=== PATIENT | female | born 1990 | race Caucasian/White ===

== ENCOUNTER 2016-03-15 22:22 | Emergency (ER) | payer OTHER ==
--- NOTE | 2016-03-15 23:14 | ED GI/GU/ABDOMINAL COMPLAINT ---
History of Present Illness General Chief Complaint: General Adult Stated Complaint: RIGHT SIDED BACK PAIN "KIDNEY" PER PT Source: patient Exam Limitations: no limitations Vital Signs & Intake/Output Vital Signs & Intake/Output Vital Signs Date Time Temp Pulse Resp B/P Pulse O2 O2 Flow FiO2 Ox Delivery Rate 03/16 0032 97.2 60 18 104/60 100 Room Air 03/15 2352 Room Air 03/15 2228 97.7 80 20 110/76 99 ED Intake and Output 03/16 0000 03/15 1200 Intake Total 1000 Output Total Balance 1000 Intake, IV 1000 Patient 107 lb Weight Allergies Coded Allergies: No Known Allergies (03/15/16) Triage Note: PER PT BEGAN PEEING BLOOD ON TUESDAY, WENT TO WALK IN NO INFECTION SEEN BUT GIVEN ANTIBIOTICS ANYWAYS {BACTRIM} LMP 2 WEEKS AGO NORMAL. TODAY BEGAN WITH PAIN TO RT FLANK WAS RADIATING BUT NOT NOW. Triage Nurses Notes Reviewed? yes ? N Is pt currently ? No HPI: This patient is a 25-year-old female who presented to the emergency department today for evaluation of right flank pain and hematuria. The patient reported that her symptoms began on Tuesday and she was urinating blood clots. The patient denied any burning with urination, but did report that she was feeling urgency and frequency. She reported that she went to an urgent care center and they told her that she had no infection in her urine, but started her prophylactically on Bactrim. The patient reported that she vomited approximately 3 times on Tuesday after beginning the Bactrim. She reported associated nausea. She reported that on Tuesday she was feeling better, but today she has vomited approximately 4 or 5 times. She is feeling nauseous again and started to experience 7 out of 10 right flank pain which has been constant since this evening when it started and is nonradiating. She reported that it is worse when she takes a deep breath. No other exacerbating factors. No alleviating factors. The patient denied any fevers, but did report chills. She denied any headaches, chest pain, shortness of breath, abdominal pain, constipation, or diarrhea. (SANTINO ROSAS,KURT) Reconcile Medications Ondansetron (Zofran Odt) 4 MG TAB.RAPDIS 1 TAB SL TID PRN NAUSEA AND VOMITING (ANNIA CHARLES,ROGE You) Past History Travel History Traveled to [place] past 21 day No Medical History Any Pertinent Medical History? see below for history Neurological: NONE EENT: NONE Cardiovascular: NONE Respiratory: NONE Gastrointestinal: NONE Hepatic: NONE Renal: NONE Musculoskeletal: NONE Psychiatric: NONE Endocrine: NONE Surgical History Surgical History: non-contributory Psychosocial History What is your primary language Citizen Of [place] Tobacco Use: Never used Family History Hx Contributory? No (KURT DE PA-C) Review of Systems Review of Systems Constitutional: Reports: see HPI. EENTM: Reports: no symptoms. Respiratory: Reports: no symptoms. Cardiovascular: Reports: no symptoms. GI: Reports: see HPI. Genitourinary: Reports: see HPI. Musculoskeletal: Reports: see HPI. Skin: Reports: no symptoms. Neurological/Psychological: Reports: no symptoms. All Other Systems: Reviewed and Negative (KURT DE PA-C) Physical Exam Physical Exam Gastrointestinal: normal bowel sounds, soft, no organomegaly, tenderness to palpation in the RUQ, LUQ, AND LLQ. NEGATIVE TAYLOR'S SIGN. NO MCBURNY'S POINT TENDERNESS. NEGATIVE ROVSING SIGN. NONDISTENDED. NO MASSES APPREACIATED Comments: Well-developed well-nourished person in no acute distress HEENT: Normal EENT exam, moist mucous membranes Neck: Supple, no lymphadenopathy Back: Normal inspection. Normal gait. No midline tenderness. Positive right- sided CVA tenderness Cardiovascular: Regular rate and rhythm with no murmurs Respiratory: No respiratory distress. Breath sounds clear to auscultation bilaterally with no wheezes, rales, rhonchi Extremity: Normal and equal pulses Neuro: Alert oriented x3, cranial nerves II through XII grossly intact. Skin: No appreciable rash on exposed skin, skin is warm and dry. Psych: Mood and affect is normal Core Measures ACS in differential dx? No Severe Sepsis Present: No Septic Shock Present: No (KURT DE PA-C) Progress Differential Diagnosis: AMI, appendicitis, biliary colic, bowel obstruction, colon cancer, cholecystitis, diverticulitis, ectopic , endometritis, gastritis, hepatitis, ischemic bowel, inflamm bowel dis, intrauterine , kidney stone, ovarian cyst, ovarian torsion, pancreatitis, PID/cervicitis, PUD/ GERD, perforated viscous, threatened AB, UTI/pyelo Plan of Care: Orders Procedure Date/time Status CULTURE,URINE 03/15 2250 Active URINE 03/15 2250 Complete URINALYSIS 03/15 2250 Complete LIPASE 03/15 2250 Complete DIRECT BILIRUBIN 03/15 2250 Complete COMPREHENSIVE METABOLIC PANEL 03/15 2250 Complete CBC WITHOUT DIFFERENTIAL 03/15 2250 Complete AMYLASE 03/15 2250 Complete Laboratory Tests 03/15/162315: Anion Gap 15, Estimated GFR > 60, BUN/Creatinine Ratio 12.2, Glucose 84, Calcium 9.7, Total Bilirubin 0.9, Direct Bilirubin 0.4, AST 25, ALT 23, Alkaline Phosphatase 39, Total Protein 7.9, Albumin 4.8, Globulin 3.1, Albumin/Globulin Ratio 1.5, Amylase 58, Lipase 41, CBC w Diff NO MAN DIFF REQ, RBC 4.57, MCV 92.9 , MCH 31.5 H, RDW 12.4, MPV 10.1, Gran % 67.9, Lymphocytes % 23.2, Monocytes % 6.6, Eosinophils % 2.0, Basophils % 0.3, Absolute Granulocytes 6.2, Absolute Lymphocytes 2.1, Absolute Monocytes 0.6, Absolute Eosinophils 0.2, Absolute Basophils 0, PUBS MCHC 33.9, Urine Color YEL, Urine Clarity CLEAR, Urine pH 6.0, Ur Specific [place] >= 1.030, Urine Protein TRACE H, Urine Ketones >=80, Urine Nitrite NEG, Urine Bilirubin NEG, Urine Urobilinogen 0.2, Ur Leukocyte Esterase NEG, Ur Microscopic SEDIMENT EXAMINED, Urine RBC 5-10 H, Urine WBC 1-3 H, Ur Epithelial Cells MANY H, Urine Mucus MOD H, Urine Hemoglobin SMALL H, Urine Glucose NEG, Urine Test NEGATIVE 03/15/162312: Direct Bilirubin Cancelled, Amylase Cancelled, Lipase Cancelled Microbiology 03/15 2315 URINE ROUT: Urine Culture - RECD Diagnostic Imaging: Viewed by Me: CT Scan. Discussed w/RAD: CT Scan. Radiology Impression: PATIENT: STORMY WELLER PRESENT AGE: 25 PATIENT ACCOUNT NO: [id number] : 89 LOCATION: [facility] ORDERING PHYSICIAN: KURT DE PA-C SERVICE DATE: 03/15/16 EXAM TYPE: CAT - CT ABD & PELVIS W/O IV CONTRAS EXAMINATION: CT ABDOMEN AND PELVIS WITHOUT CONTRAST CLINICAL INFORMATION: Hematuria with right flank pain. Rule out ureterolithiasis. COMPARISON: None. TECHNIQUE: Multidetector volumetric imaging was performed from the superior aspect of the liver through the pubic symphysis. Sagittal and coronal reformatted images were obtained on the technologist's workstation. DLP: 258 mGy-cm. FINDINGS: LUNG BASES: The visualized lung bases are unremarkable. LIVER, GALLBLADDER, AND BILIARY TREE: The liver is normal in size, shape, and attenuation. No focal hepatic lesion or biliary ductal dilatation is present. The gallbladder is unremarkable with no evidence of radiopaque gallstones, gallbladder wall thickening, or obvious pericholecystic inflammatory changes. PANCREAS: Unremarkable. SPLEEN: Unremarkable. ADRENAL GLANDS: Unremarkable. KIDNEYS AND URETERS: The kidneys are normal in size, shape , and attenuation. No hydronephrosis, hydroureter, or calculi seen. No perinephric stranding. BLADDER: Unremarkable. GASTROINTESTINAL TRACT: The stomach and small bowel appear unremarkable. No dilated loops of bowel or evidence of obstruction. Moderate colonic stool burden. The rectum is distended with gas. No free air. No free fluid. Normal appendix. ABDOMINAL WALL: No significant hernia is appreciated. LYMPH NODES: Normal. VASCULAR: Unremarkable. PELVIC VISCERA: The uterus and adnexa are unremarkable. OSSEOUS STRUCTURES: No acute or suspicious osseous abnormality. IMPRESSION: No acute findings of the abdomen or pelvis. No hydronephrosis or nephrolithiasis. Moderate colonic stool burden. DICTATED BY: JANENE LIANG MD DATE/TIME DICTATED:03/16/163 MOLD FILLER PLASTIC DOLLS:FERNANDA DATE/TIME TRANSCRIBED:03/16/163 CONFIDENTIAL, DO NOT COPY WITHOUT APPROPRIATE AUTHORIZATION. <Electronically signed in Other Vendor System> SIGNED BY: JANENE LIANG MD 03/16/16 0012 Initial ED EKG: none (SANTINO ROSAS,KURT) Departure Departure Disposition: HOME OR SELF CARE Condition: Stable Clinical Impression Primary Impression: Hematuria Referrals: JERROD CHARLES,AMELIA RIVERA MD,MARCO Gross (PCP/Family) Additional Instructions: Please call to make a follow-up appointment with both your primary care physician as well as the urologist whose information has been provided to you in this packet. Take medication as prescribed for nausea. Return for any worsening symptoms or concerns. Departure Forms: Customer Survey General Discharge Information Prescriptions: Current Visit Scripts Ondansetron (Zofran Odt) 1 TAB SL TID PRN NAUSEA AND VOMITING #10 TAB (SANTINO ROSAS,KURT) PA/CANDLEMAKING LABORER Co-Sign Statement Statement: ED Attending supervision documentation- [] I saw and evaluated the patient. I have also reviewed all the pertinent lab results and diagnostic results. I agree with the findings and the plan of care as documented in the PA's/CANDLEMAKING LABORER's documentation. [X] I have reviewed the ED Record and agree with the PA's/CANDLEMAKING LABORER's documentation. [] Additions or exceptions (if any) to the PAs/CANDLEMAKING LABORER's note and plan are summarized below: [] (ANNIA CHARLES,ROGE You)
[2016-03-15 23:27] LABS: ABSOLUTE BASOPHIL COUNT 0 /CUMM (0.0-0.2); ABSOLUTE EOSINOPHIL COUNT 0.2 /CUMM (0.0-0.7); ABSOLUTE GRANULOCYTE CT 6.2 /CUMM (1.4-6.5); ABSOLUTE LYMPH COUNT 2.1 /CUMM (1.2-3.4); ABSOLUTE MONOCYTE COUNT 0.6 /CUMM (0.10-0.60); BASOPHIL % 0.3 % (0.0-2.0); GRANULOCYTE % 67.9 % (42.2-75.2); HEMATOCRIT 42.4 % (37-47); MEAN CORPUSCULAR HGB 31.5 PG (27.0-31.0); MEAN CORPUSCULAR HGB CONC 33.9 G/DL (33.0-37.0); MEAN CORPUSCULAR VOLUME 92.9 FL (81.0-99.0); MEAN PLATELET VOLUME 10.1 FL (7.4-10.4); PLATELET COUNT 182 /CUMM (130-400); RBC DISTRIBUTION WIDTH 12.4 % (11.5-14.5); RED BLOOD CELL CT 4.57 /CUMM (4.20-5.40); WHITE BLOOD CELL COUNT 9.1 /CUMM (4.8-10.8)
--- NOTE | 2016-03-16 00:12 | CT SCAN REPORT ---
EXAMINATION: CT ABDOMEN AND PELVIS WITHOUT CONTRAST CLINICAL INFORMATION: Hematuria with right flank pain. Rule out ureterolithiasis. COMPARISON: None. TECHNIQUE: Multidetector volumetric imaging was performed from the superior aspect of the liver through the pubic symphysis. Sagittal and coronal reformatted images were obtained on the technologist's workstation. DLP: 258 mGy-cm. FINDINGS: LUNG BASES: The visualized lung bases are unremarkable. LIVER, GALLBLADDER, AND BILIARY TREE: The liver is normal in size, shape, and attenuation. No focal hepatic lesion or biliary ductal dilatation is present. The gallbladder is unremarkable with no evidence of radiopaque gallstones, gallbladder wall thickening, or obvious pericholecystic inflammatory changes. PANCREAS: Unremarkable. SPLEEN: Unremarkable. ADRENAL GLANDS: Unremarkable. KIDNEYS AND URETERS: The kidneys are normal in size, shape, and attenuation. No hydronephrosis, hydroureter, or calculi seen. No perinephric stranding. BLADDER: Unremarkable. GASTROINTESTINAL TRACT: The stomach and small bowel appear unremarkable. No dilated loops of bowel or evidence of obstruction. Moderate colonic stool burden. The rectum is distended with gas. No free air. No free fluid. Normal appendix. ABDOMINAL WALL: No significant hernia is appreciated. LYMPH NODES: Normal. VASCULAR: Unremarkable. PELVIC VISCERA: The uterus and adnexa are unremarkable. OSSEOUS STRUCTURES: No acute or suspicious osseous abnormality. IMPRESSION: No acute findings of the abdomen or pelvis. No hydronephrosis or nephrolithiasis. Moderate colonic stool burden.
[2016-03-16] MEDS ORDERED: ZOFRAN ODT4 M1 SL (00:25)
[2016-03-16 00:32] VITALS: BP 104/60
== END 2016-03-16 00:37 ==
LOC: ERH 22:22
PROVIDERS: Physician Assistant
DX: R31.9 Hematuria, unspecified (principal); R11.2 Nausea with vomiting, unspecified
CPT/HCPCS: 74176; 81001; 81025; 87086; 96374; 96375; J1885; J2405